=== PATIENT | male | born 1940 | race Caucasian/White ===

== ENCOUNTER → 2018-03-11 | Outpatient (CLI) | payer OTHER ==
[2018-03-11 17:49] LABS: ALBUMIN 3.7 g/dL (3.5-5.0); CALCIUM 8.9 mg/dL (8.4-10.2); POTASSIUM 4.4 mmol/L (3.6-5.0); TOTAL BILIRUBIN 0.3 mg/dL (0.2-1.3); TOTAL PROTEIN 6.6 g/dL (6.3-8.2)
[2018-03-11 18:24] LABS: URINE APPEARANCE CLEAR; URINE BILIRUBIN NEGATIVE (NEGATIVE); URINE COLOR YELLOW; URINE GLUCOSE NEGATIVE (NEGATIVE); URINE KETONE NEGATIVE (NEGATIVE); URINE PROTEIN(semi-quant) TRACE mg/dL (NEGATIVE); URINE UROBILINOGEN NORMAL (NORMAL)
[2018-03-11 18:25] LABS: URINE BLOOD TRACE (NEGATIVE); URINE LEUKOCYTE ESTERASE TRACE (NEGATIVE); URINE NITRATE NEGATIVE (NEGATIVE)
== END ==
LOC: LAB 15:55
PROVIDERS: Family Medicine
DX: J44.9 Chronic obstructive pulmonary disease, unspecified (principal); I10 Essential (primary) hypertension; I48.91 Unspecified atrial fibrillation; N40.0 Benign prostatic hyperplasia without lower urinary tract symptoms; N39.41 Urge incontinence; E03.9 Hypothyroidism, unspecified

== ENCOUNTER → 2018-03-28 | Outpatient (CLI) | payer MEDICARE ==
[2018-03-29 01:36] LABS: TESTOSTERONE 16 ng/dL (221-716)
== END ==
LOC: LAB 13:15
DX: C61 Malignant neoplasm of prostate (principal); N18.3 Chronic kidney disease, stage 3 (moderate); D63.1 Anemia in chronic kidney disease; R80.8 Other proteinuria

== ENCOUNTER → 2018-04-01 | Outpatient (CLI) | payer MEDICARE | LOC: RAD 09:45 | DX: N28.1 Cyst of kidney, acquired (principal) ==

== ENCOUNTER → 2018-05-16 | Outpatient (CLI) | payer MEDICARE ==
[2018-05-16 10:51] LABS: CALCIUM 9.1 mg/dL (8.4-10.2); POTASSIUM 4.6 mmol/L (3.6-5.0)
== END ==
LOC: LAB 10:23
PROVIDERS: Internal Medicine Nephrology
DX: N18.3 Chronic kidney disease, stage 3 (moderate) (principal)

== ENCOUNTER → 2018-07-26 | Outpatient (CLI) | payer MEDICARE, MEDICAID ==
[2018-07-26 08:21] LABS: ALBUMIN 3.2 g/dL (3.4-4.8); CALCIUM 8.9 mg/dL (8.8-10.0); DIRECT BILIRUBIN 0.2 mg/dL (0.0-0.5); POTASSIUM 4.9 mmol/L (3.5-5.1); TOTAL BILIRUBIN 0.3 mg/dL (0.2-1.2); TOTAL PROTEIN 6.6 g/dL (6.2-8.1)
[2018-07-26 23:32] LABS: HEPATITIS B SURFACE ANTIBODY <2.0 (())
== END ==
LOC: LAB 07:45
PROVIDERS: Family Medicine
DX: I48.91 Unspecified atrial fibrillation (principal); E78.1 Pure hyperglyceridemia; I10 Essential (primary) hypertension; N40.0 Benign prostatic hyperplasia without lower urinary tract symptoms

== ENCOUNTER → 2018-08-05 | Outpatient (CLI) | payer MEDICARE, MEDICAID ==
[2018-08-05 08:51] LABS: CALCIUM 9.3 mg/dL (8.3-10.5); POTASSIUM 4.9 mmol/L (3.5-5.1)
== END ==
LOC: LAB 07:54
PROVIDERS: Internal Medicine
DX: N18.3 Chronic kidney disease, stage 3 (moderate) (principal)

== ENCOUNTER → 2018-08-19 | Outpatient (CLI) | payer MEDICARE, MEDICAID ==
[2018-08-19 12:31] LABS: CALCIUM 9.1 mg/dL (8.3-10.5); POTASSIUM 5.2 mmol/L (3.5-5.1)
== END ==
LOC: LAB 12:04
PROVIDERS: Internal Medicine Nephrology
DX: N18.3 Chronic kidney disease, stage 3 (moderate) (principal)

== ENCOUNTER → 2018-09-16 | Outpatient (CLI) | payer MEDICARE | LOC: RAD 10:50 | DX: E78.1 Pure hyperglyceridemia (principal); R22.1 Localized swelling, mass and lump, neck ==

== ENCOUNTER → 2018-09-23 | Outpatient (CLI) | payer MEDICARE ==
[2018-09-23 09:16] LABS: POTASSIUM 4.7 mmol/L (3.5-5.1)
[2018-09-23 09:18] LABS: CALCIUM 9.1 mg/dL (8.3-10.5)
== END ==
LOC: LAB 08:54
PROVIDERS: Internal Medicine Nephrology
DX: N18.3 Chronic kidney disease, stage 3 (moderate) (principal)

== ENCOUNTER → 2018-11-26 | Outpatient (CLI) | payer MEDICARE | LOC: RAD 09:48 | DX: C91.10 Chronic lymphocytic leukemia of B-cell type not having achieved remission (principal); C85.90 Non-Hodgkin lymphoma, unspecified, unspecified site; J44.9 Chronic obstructive pulmonary disease, unspecified; J98.4 Other disorders of lung; Z90.49 Acquired absence of other specified parts of digestive tract ==

== ENCOUNTER → 2018-11-27 | Day surgery (SDC) | payer MEDICARE | LOC: MSO 12:44 | DX: H25.811 Combined forms of age-related cataract, right eye (principal); D64.9 Anemia, unspecified; J44.9 Chronic obstructive pulmonary disease, unspecified; G40.909 Epilepsy, unspecified, not intractable, without status epilepticus; I12.9 Hypertensive chronic kidney disease with stage 1 through stage 4 chronic kidney disease, or unspecified chronic kidney disease; N18.9 Chronic kidney disease, unspecified; G43.909 Migraine, unspecified, not intractable, without status migrainosus; M19.90 Unspecified osteoarthritis, unspecified site; C44.90 Unspecified malignant neoplasm of skin, unspecified; Z79.899 Other long term (current) drug therapy; Z79.82 Long term (current) use of aspirin; I48.91 Unspecified atrial fibrillation; G47.33 Obstructive sleep apnea (adult) (pediatric); F32.9 Major depressive disorder, single episode, unspecified; E66.9 Obesity, unspecified | CPT/HCPCS: 00142; J0171; J2250; V2632 ==

== ENCOUNTER → 2018-12-24 | Outpatient (CLI) | payer MEDICARE ==
[2018-12-24 12:13] LABS: HEMATOCRIT 34.1 % (42.0-52.0); HEMOGLOBIN 10.4 g/dL (13.5-18.0); MEAN PLATELET VOLUME 9.9 fl (7.4-10.4); RED BLOOD COUNT 3.51 M/mm3 (4.20-5.60); RED CELL DISTRIBUTION WIDTH 13.7 % (11.5-14.5); WHITE BLOOD COUNT 7.9 K/mm3 (4.8-10.8)
[2018-12-24 12:21] LABS: ALBUMIN 3.8 g/dL (3.4-4.8)
[2018-12-24 12:23] LABS: CALCIUM 9.2 mg/dL (8.3-10.5)
== END ==
LOC: LAB 11:54
PROVIDERS: Internal Medicine Nephrology
DX: N18.3 Chronic kidney disease, stage 3 (moderate) (principal); R80.8 Other proteinuria

== ENCOUNTER → 2018-12-25 | Day surgery (SDC) | payer MEDICARE | END | disposition home or self-care (01) | LOC: MSO | DX: H25.812 Combined forms of age-related cataract, left eye (principal); D64.9 Anemia, unspecified; G40.909 Epilepsy, unspecified, not intractable, without status epilepticus; J44.9 Chronic obstructive pulmonary disease, unspecified; I10 Essential (primary) hypertension; N28.9 Disorder of kidney and ureter, unspecified; G43.909 Migraine, unspecified, not intractable, without status migrainosus; Z90.49 Acquired absence of other specified parts of digestive tract; Z85.828 Personal history of other malignant neoplasm of skin; Z79.899 Other long term (current) drug therapy | CPT/HCPCS: 00142; J0171; J2250; V2632 ==

== ENCOUNTER → 2019-01-21 | Outpatient (CLI) | payer MEDICARE ==
[2019-01-21 08:30] LABS: ALBUMIN 3.8 g/dL (3.4-4.8)
[2019-01-21 08:31] LABS: POTASSIUM 4.5 mmol/L (3.5-5.1)
[2019-01-21 08:32] LABS: CALCIUM 9.3 mg/dL (8.3-10.5)
[2019-01-21 08:42] LABS: HEMATOCRIT 36.1 % (42.0-52.0); HEMOGLOBIN 11.1 g/dL (13.5-18.0); MEAN PLATELET VOLUME 11.1 fl (7.4-10.4); RED BLOOD COUNT 3.75 M/mm3 (4.20-5.60); RED CELL DISTRIBUTION WIDTH 13.9 % (11.5-14.5); WHITE BLOOD COUNT 6.4 K/mm3 (4.8-10.8)
== END ==
LOC: LAB 08:08
PROVIDERS: Urology
DX: C61 Malignant neoplasm of prostate (principal); N18.3 Chronic kidney disease, stage 3 (moderate)

== ENCOUNTER → 2019-03-14 | Outpatient (CLI) | payer MEDICARE | LOC: LAB 09:10 → RAD 09:10 | DX: C91.10 Chronic lymphocytic leukemia of B-cell type not having achieved remission (principal); E03.9 Hypothyroidism, unspecified ==

== ENCOUNTER → 2019-04-09 | Outpatient (CLI) | payer MEDICARE ==
[2019-04-09 10:38] LABS: CALCIUM 8.5 mg/dL (8.3-10.5)
== END ==
LOC: LAB 09:51
PROVIDERS: Internal Medicine Nephrology
DX: N18.3 Chronic kidney disease, stage 3 (moderate) (principal)

== ENCOUNTER → 2019-05-16 | Outpatient (CLI) | payer MEDICARE | LOC: RAD 08:33 | DX: C85.90 Non-Hodgkin lymphoma, unspecified, unspecified site (principal); C91.10 Chronic lymphocytic leukemia of B-cell type not having achieved remission; R91.1 Solitary pulmonary nodule; R59.0 Localized enlarged lymph nodes ==

== ENCOUNTER → 2019-07-25 | Outpatient (CLI) | payer MEDICARE ==
[2019-07-25 08:16] LABS: HEMATOCRIT 31.9 % (42.0-52.0); HEMOGLOBIN 9.4 g/dL (13.5-18.0); LYMPH# 2.9 (1.50-4.00); MEAN CELL VOLUME 95 fl (78-100); MEAN CORPUSCULAR HEMOGLOBIN 28 pg (27-31); MEAN CORPUSCULAR HGB CONC 30 g/dL (33-37); MEAN PLATELET VOLUME 9.7 fl (7.4-10.4); MONO # 0.6 (0.20-0.80); NEU # 4.6 (1.40-6.50); PLATELET COUNT 274 K/mm3 (130-400); RED BLOOD COUNT 3.36 M/mm3 (4.20-5.60); RED CELL DISTRIBUTION WIDTH 15.4 % (11.5-14.5); WHITE BLOOD COUNT 8.2 K/mm3 (4.8-10.8)
[2019-07-25 08:29] LABS: ALBUMIN 3.6 g/dL (3.4-4.8); POTASSIUM 4.7 mmol/L (3.5-5.1)
[2019-07-25 08:30] LABS: CALCIUM 8.8 mg/dL (8.3-10.5)
[2019-07-25 08:33] LABS: TOTAL BILIRUBIN 0.2 mg/dL (0.2-1.2)
== END ==
LOC: LAB 08:01
PROVIDERS: Internal Medicine
DX: C91.10 Chronic lymphocytic leukemia of B-cell type not having achieved remission (principal)

== ENCOUNTER → 2019-09-15 | Outpatient (CLI) | payer MEDICARE | LOC: LAB 10:21 | DX: E03.9 Hypothyroidism, unspecified (principal); E78.1 Pure hyperglyceridemia; I50.32 Chronic diastolic (congestive) heart failure ==

== ENCOUNTER → 2019-10-27 | Outpatient (CLI) | payer MEDICARE | LOC: LAB 11:31 | DX: I50.32 Chronic diastolic (congestive) heart failure (principal); E78.1 Pure hyperglyceridemia ==

== ENCOUNTER → 2019-12-12 | Outpatient (CLI) | payer MEDICARE ==
[2019-12-12 11:28] LABS: HEMOGLOBIN 9.5 g/dL (13.5-18.0); MEAN CELL VOLUME 97 fl (78-100); MEAN CORPUSCULAR HEMOGLOBIN 27 pg (27-31); MEAN PLATELET VOLUME 10.7 fl (7.4-10.4); PLATELET COUNT 347 K/mm3 (130-400); RED BLOOD COUNT 3.52 M/mm3 (4.20-5.60); RED CELL DISTRIBUTION WIDTH 16.3 % (11.5-14.5); WHITE BLOOD COUNT 9.2 K/mm3 (4.8-10.8)
[2019-12-12 11:36] LABS: MEAN CORPUSCULAR HGB CONC 28 g/dL (33-37)
[2019-12-12 11:40] LABS: POTASSIUM 4.8 mmol/L (3.5-5.1)
[2019-12-12 11:41] LABS: CALCIUM 8.4 mg/dL (8.3-10.5)
[2019-12-12 11:55] LABS: LYMPHOCYTE 13 % (20-51); MONOCYTE 11 % (3-10); NEUTROPHILS 76 % (42-75); OVALOCYTES 1+
== END ==
LOC: LAB 11:18
PROVIDERS: Family Medicine
DX: I48.91 Unspecified atrial fibrillation (principal); N39.41 Urge incontinence; J44.9 Chronic obstructive pulmonary disease, unspecified; I50.32 Chronic diastolic (congestive) heart failure; N17.9 Acute kidney failure, unspecified